=== PATIENT | female | born 1945 | race Caucasian/White ===

== ENCOUNTER 2018-08-19 12:27 | Emergency (ER) | payer MEDICARE ==
[~2018-08-19] VITALS: Ht 167.6 cm; Wt 86.6 kg
[~2018-08-19 12:27] MED LIST: ALPR1TAB6 PO; AMLO10TA6 PO; ASPI-482 PO; ATOR20TA58 PO; CARB200T4 PO; CITA20TA6 PO; DOXA8TAB59 PO; FLUT1DIS3 IH; HYDR-2762 PO; IBUP200T77 PO; ISOS30TA4 PO; LOSA100T7 PO; NAPR-514 PO; PHEN100C4 PO; TEMA30CA PO
[2018-08-19 13:05] VITALS: BP 183/88
[2018-08-19 13:07] LABS: CALCIUM 9.2 mg/dL (8.5-10.1); CREATININE 0.6 mg/dL (0.6-1.0); GFR 97.7; POTASSIUM 3.5 mmol/L (3.5-5.1)
[2018-08-19 13:13] LABS: ALBUMIN 3.2 g/dL (3.4-5.0); ALBUMIN/GLOBULIN RATIO 0.7 (1.0-1.7); BASO # 0.1 x10^3/uL (0.0-0.2); BASO % 1 % (0-3); EOS # 0.1 x10^3/uL (0.0-0.7); EOS % 2 % (0-3); HEMATOCRIT 38.1 % (36.0-47.0); HEMOGLOBIN 13.3 g/dL (12.0-15.5); LYMPH # 1.7 x10^3/uL (1.0-4.8); LYMPH % 25 % (24-48); MEAN CORPUSCULAR HEMOGLOBIN 34 pg (25-35); MEAN CORPUSCULAR HGB CONC 35 g/dL (31-37); MEAN CORPUSCULAR VOLUME 99 fL (79-100); MONO # 0.4 x10^3/uL (0.0-1.1); MONO % 7 % (0-9); NEUT # 4.5 x10^3uL (1.8-7.7); NEUT % 67 % (31-73); PLATELET COUNT 115 x10^3/uL (140-400); RED BLOOD COUNT 3.87 x10^6/uL (3.50-5.40); RED CELL DISTRIBUTION WIDTH 14.8 % (11.5-14.5); TOTAL BILIRUBIN 0.3 mg/dL (0.2-1.0); TOTAL PROTEIN 7.8 g/dL (6.4-8.2); WHITE BLOOD COUNT 6.8 x10^3/uL (4.0-11.0)
[2018-08-19] MEDS ORDERED: IV NORMAL SALINE 1000ML BAG 1,000 ML IV ONE (13:15)
[2018-08-19] MEDS ORDERED: FAMOTIDINE 20 MG/2 ML VIAL IVP ONE (13:15)
[2018-08-19] MEDS ORDERED: ONDANSETRON PF 4 MG/2 ML VIAL. IM ONE ×2 (13:15→15:30)
[2018-08-19] MEDS ORDERED: fentaNYL PF VIAL 100 MCG/2 ML VIAL IV ONE ×2 (13:15→14:30)
[2018-08-19] MEDS ORDERED: ONDANSETRON PF 4 MG/2 ML VIAL. IV ONE (13:30)
[2018-08-19] MEDS ORDERED: IOHEXOL 300 MG/ML 100ML VIAL. IV ONE (13:30)
--- NOTE | 2018-08-19 13:47 | EKG ---
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
--- NOTE | 2018-08-19 14:02 | RAD ---
CT scan of the abdomen with contrast 08/19/2018 CLINICAL HISTORY: Right upper quadrant abdominal pain with nausea and vomiting. TECHNIQUE: After the intravenous administration of 75 cc of Omnipaque 300, contiguous, 5 mm axial sections were obtained through the abdomen. One or more of the following individualized dose reduction techniques were utilized for this study: 1. Automated exposure control. 2. Adjustment of the mA and/or kV according to patient size. 3. Use of iterative reconstruction technique. FINDINGS: Images through the lung bases demonstrate mild cardiomegaly. Minimal dependent subsegmental atelectasis is seen bilaterally. The liver parenchyma has a decreased attenuation consistent with mild fatty infiltration. The spleen, pancreas, right adrenal gland and kidneys are within normal limits. A 2.5 cm rounded nodule is seen involving the left adrenal gland. This likely represents an adrenal adenoma. Atherosclerotic calcification of the abdominal aorta and its branches is seen. The abdominal aorta tapers normally. The gallbladder is well-distended. No free fluid or free air is seen within the abdomen. There is no evidence of bowel obstruction. Air and stool is seen throughout the colon. The appendix is not included on these images. Minimal S-shaped curvature of the thoracolumbar spine is seen. Degenerative changes are seen involving lower thoracic and throughout the lumbar spine. An old appearing compression fracture of the L1 vertebral body is seen. IMPRESSION: No acute abnormality is seen. Electronically signed by: Mark Neal MD (08/19/2018 1:58 PM) [facility]
[2018-08-19 14:21] LABS: BILIRUBIN,URINE NEGATIVE (NEG); CLARITY,URINE CLEAR; COLOR,URINE YELLOW; NITRITE,URINE NEGATIVE (NEG); PH,URINE 6.5; PROTEIN,URINE NEGATIVE (NEG-TRACE); UROBILINOGEN,URINE 0.2 mg/dL (0.2 mg/dL)
[2018-08-19 14:31] LABS: RBC,URINE 0 /HPF (0-2); SQUAMOUS EPITHELIAL CELL,UR OCC /LPF; WBC,URINE OCC /HPF (0-4)
[2018-08-19 14:32] LABS: BACTERIA,URINE MODERATE /HPF (0-FEW)
--- NOTE | 2018-08-19 14:51 | RAD ---
Right upper quadrant ultrasound 08/19/2018 INDICATION: Right upper quadrant pain. COMPARISON STUDY: CT of the abdomen and pelvis, earlier same day FINDINGS: The pancreas is poorly visualized. Aorta and IVC are poorly visualized. Liver is grossly normal in size measuring 14 cm longitudinally. Portal venous flow appears to be grossly normal direction. No focal hepatic lesions are identified by ultrasound. The common bile duct is nondilated measuring between 3 and 4 mm in diameter. The right kidney is normal in appearance measuring 13 cm in length. No evidence of acute obstructive uropathy is seen. Submitted images of the gallbladder demonstrate no definitive wall thickening. No sludge or stones are seen. Sonographic Pena sign is negative. IMPRESSION: No sonographic evidence of acute intra-abdominal abnormality Electronically signed by: Rosendo Hatfield MD (08/19/2018 2:47 PM) [facility]
[2018-08-19] MEDS ORDERED: RANI150T2 PO (15:19)
[2018-08-19] MEDS ORDERED: ONDA4TAB12 PO (15:20)
--- NOTE | 2018-08-19 15:21 | PHYS DOC ---
Past Medical History Past Medical History: Arthritis, Hypertension, Hypothyroid, Other Additional Past Medical Histor: polyps, epilepsy Past Surgical History: Hysterectomy, Other Additional Past Surgical Histo: bladder lift , colon resection Alcohol Use: None Drug Use: None Adult General Chief Complaint Chief Complaint: ABDOMINAL PAIN [facility] HPI Patient is a 73 year old female who presents with nausea, vomiting, right upper abdominal pain 2-3 weeks that is a constant sharp pain. Patient states she vomits after every time she eats something. Patient was at home with her . Patient rates her pain a 9 out of 10. Radiate. Patient states she has not taken anything for pain. Patient denies any current diarrhea. Patient states she had a bowel movement yesterday was normal for her. Patient states it doesn't matter what she eats she still vomits. Review of Systems Review of Systems Constitutional: Denies fever or chills [] Eyes: Denies change in visual acuity, redness, or eye pain [] HENT: Denies nasal congestion or sore throat [] Respiratory: Denies cough or shortness of breath [] Cardiovascular: No additional information not addressed in HPI [] GI: Right upper abdominal pain, nausea, vomiting. Denies bloody stools or diarrhea [] : Denies dysuria or hematuria [] Musculoskeletal: Denies back pain or joint pain [] Integument: Denies rash or skin lesions [] Neurologic: Denies headache, focal weakness or sensory changes [] Endocrine: Denies polyuria or polydipsia [] All other systems were reviewed and found to be within normal limits, except as documented in this note. Current Medications Current Medications Current Medications Medications (Trade) Dose Ordered Sig/[facility] Start Time Stop Time Status Last Admin Dose Admin Famotidine (Pepcid Vial) 20 mg 1X ONCE 08/19/18 13:15 08/19/18 13:18 DC 08/19/18 13:19 20 MG Fentanyl Citrate (Fentanyl 2ml Vial) 50 mcg 1X ONCE 08/19/18 14:30 08/19/18 14:31 DC 08/19/18 14:28 50 MCG Iohexol (Omnipaque 300 Mg/ml) 75 ml 1X ONCE 08/19/18 13:30 08/19/18 13:36 DC 08/19/18 13:39 75 ML Ondansetron HCl (Zofran) 4 mg 1X ONCE 08/19/18 15:30 10/8/18 15:31 DC 08/19/18 15:42 4 MG Sodium Chloride 1,000 ml @ 1,000 mls/hr 1X ONCE 08/19/18 13:15 08/19/18 14:14 DC 08/19/18 13:15 1,000 MLS/HR Allergies Allergies Allergies Coded Allergies Type Severity Reaction Last Updated Verified morphine Allergy Mild 06/06/15 No furosemide Adverse Reaction Intermediate "dizzy" 03/04/15 Yes Physical Exam Physical Exam Constitutional: Well developed, well nourished, no acute distress, non-toxic appearance. [] HENT: Normocephalic, atraumatic, bilateral external ears normal, oropharynx moist, no oral exudates, nose normal. [] Eyes: PERRLA, EOMI, conjunctiva normal, no discharge. [] Neck: Normal range of motion, no tenderness, supple, no stridor. [] Cardiovascular:Heart rate regular rhythm, no murmur [] Lungs & Thorax: Bilateral breath sounds clear to auscultation [] Abdomen: Bowel sounds normal, soft, RUQ tenderness, no masses, no pulsatile masses. [] Skin: Warm, dry, no erythema, no rash. [] Back: No tenderness, no CVA tenderness. [] Extremities: No tenderness, no cyanosis, no clubbing, ROM intact, no edema. [] Neurologic: Alert and oriented X 3, normal motor function, normal sensory function, no focal deficits noted. [] Psychologic: Affect normal, judgement normal, mood normal. [] Current Patient Data Vital Signs Vital Signs Date Time Temp Pulse Resp B/P (MAP) Pulse Ox O2 Delivery O2 Flow Rate FiO2 08/19/18 14:28 96 Room Air 08/19/18 13:05 60 183/88 (119) 08/19/18 12:29 98.0 18 98.0 Lab Values Laboratory Tests Test 08/19/18 12:44 08/19/18 14:10 White Blood Count 6.8 x10^3/uL (4.0-11.0) Red Blood Count 3.87 x10^6/uL (3.50-5.40) Hemoglobin 13.3 g/dL (12.0-15.5) Hematocrit 38.1 % (36.0-47.0) Mean Corpuscular Volume 99 fL (79-100) Mean Corpuscular Hemoglobin 34 pg (25-35) Mean Corpuscular Hemoglobin Concent 35 g/dL (31-37) Red Cell Distribution Width 14.8 % (11.5-14.5) H Platelet Count 115 x10^3/uL (140-400) L Neutrophils (%) (Auto) 67 % (31-73) Lymphocytes (%) (Auto) 25 % (24-48) Monocytes (%) (Auto) 7 % (0-9) Eosinophils (%) (Auto) 2 % (0-3) Basophils (%) (Auto) 1 % (0-3) Neutrophils # (Auto) 4.5 x10^3uL (1.8-7.7) Lymphocytes # (Auto) 1.7 x10^3/uL (1.0-4.8) Monocytes # (Auto) 0.4 x10^3/uL (0.0-1.1) Eosinophils # (Auto) 0.1 x10^3/uL (0.0-0.7) Basophils # (Auto) 0.1 x10^3/uL (0.0-0.2) Sodium Level 136 mmol/L (136-145) Potassium Level 3.5 mmol/L (3.5-5.1) Chloride Level 100 mmol/L (98-107) Carbon Dioxide Level 26 mmol/L (21-32) Anion Gap 10 (6-14) Blood Urea Nitrogen 11 mg/dL (7-20) Creatinine 0.6 mg/dL (0.6-1.0) Estimated GFR (Cockcroft-Gault) 97.7 BUN/Creatinine Ratio 18 (6-20) Glucose Level 105 mg/dL (70-99) H Calcium Level 9.2 mg/dL (8.5-10.1) Total Bilirubin 0.3 mg/dL (0.2-1.0) Aspartate Amino Transferase (AST) 22 U/L (15-37) Alanine Aminotransferase (ALT) 27 U/L (14-59) Alkaline Phosphatase 69 U/L (46-116) Troponin I Quantitative < 0.017 ng/mL (0.000-0.055) Total Protein 7.8 g/dL (6.4-8.2) Albumin 3.2 g/dL (3.4-5.0) L Albumin/Globulin Ratio 0.7 (1.0-1.7) L Lipase 194 U/L (73-393) Urine Collection Type Unknown Urine Color Yellow Urine Clarity Clear Urine pH 6.5 Urine Specific [place] 1.025 Urine Protein Negative mg/dL (NEG-TRACE) Urine Glucose (UA) Negative mg/dL (NEG) Urine Ketones (Stick) Negative mg/dL (NEG) Urine Blood Negative (NEG) Urine Nitrite Negative (NEG) Urine Bilirubin Negative (NEG) Urine Urobilinogen Dipstick 0.2 mg/dL (0.2 mg/dL) Urine Leukocyte Esterase Negative (NEG) Urine RBC 0 /HPF (0-2) Urine WBC Occ /HPF (0-4) Urine Squamous Epithelial Cells Occ /LPF Urine Bacteria Moderate /HPF (0-FEW) Laboratory Tests 08/19/18 12:44 Laboratory Tests 08/19/18 12:44 EKG EKG [] Radiology/Procedures Radiology/Procedures CT ABD, ABD US Impressions: [facility] [address] [place] [address] IMAGING REPORT Signed PATIENT: MAURISIO MENSAH ACCOUNT: [id number] : 1945 LOCATION: ER AGE: 73 SEX: F EXAM STATUS: REG ER ORD. PHYSICIAN: BRITNI ONEILL APRN REASON: RIGHT UPPER ABDOMINAL PAIN PROCEDURE: CT ABDOMEN W/CONTRAST CT scan of the abdomen with contrast 08/19/2018 CLINICAL HISTORY: Right upper quadrant abdominal pain with nausea and vomiting. TECHNIQUE: After the intravenous administration of 75 cc of Omnipaque 300, contiguous, 5 mm axial sections were obtained through the abdomen. One or more of the following individualized dose reduction techniques were utilized for this study: 1. Automated exposure control. 2. Adjustment of the mA and/or kV according to patient size. 3. Use of iterative reconstruction technique. FINDINGS: Images through the lung bases demonstrate mild cardiomegaly. Minimal dependent subsegmental atelectasis is seen bilaterally. The liver parenchyma has a decreased attenuation consistent with mild fatty infiltration. The spleen, pancreas, right adrenal gland and kidneys are within normal limits. A 2.5 cm rounded nodule is seen involving the left adrenal gland. This likely represents an adrenal adenoma. Atherosclerotic calcification of the abdominal aorta and its branches is seen. The abdominal aorta tapers normally. The gallbladder is well-distended. No free fluid or free air is seen within the abdomen. There is no evidence of bowel obstruction. Air and stool is seen throughout the colon. The appendix is not included on these images. Minimal S-shaped curvature of the thoracolumbar spine is seen. Degenerative changes are seen involving lower thoracic and throughout the lumbar spine. An old appearing compression fracture of the L1 vertebral body is seen. IMPRESSION: No acute abnormality is seen. Electronically signed by: Mark Neal MD (08/19/2018 1:58 PM) [id number] DICTATED and SIGNED BY: MARK NEAL MD DATE: 08/19/18 1352 [facility] [address] [place] [address] IMAGING REPORT Signed PATIENT: MAURISIO MENSAH ACCOUNT: [id number] : 1945 LOCATION: ER AGE: 73 SEX: F EXAM STATUS: REG ER ORD. PHYSICIAN: BRITNI ONEILL APRN REASON: right upper quad pain, rule out gallstones PROCEDURE: ABDOMEN LTD Right upper quadrant ultrasound 08/19/2018 INDICATION: Right upper quadrant pain. COMPARISON STUDY: CT of the abdomen and pelvis, earlier same day FINDINGS: The pancreas is poorly visualized. Aorta and IVC are poorly visualized. Liver is grossly normal in size measuring 14 cm longitudinally. Portal venous flow appears to be grossly normal direction. No focal hepatic lesions are identified by ultrasound. The common bile duct is nondilated measuring between 3 and 4 mm in diameter. The right kidney is normal in appearance measuring 13 cm in length. No evidence of acute obstructive uropathy is seen. Submitted images of the gallbladder demonstrate no definitive wall thickening. No sludge or stones are seen. Sonographic Pena sign is negative. IMPRESSION: No sonographic evidence of acute intra-abdominal abnormality Electronically signed by: Rosendo Hatfield MD (08/19/2018 2:47 PM) [id number] DICTATED and SIGNED BY: ROSENDO HATFIELD MD DATE: 08/19/18 1442 Course & Med Decision Making Course & Med Decision Making Patient is a 73 year old female who presents with nausea, vomiting, right upper abdominal pain 2-3 weeks that is a constant sharp pain. Patient states she vomits after every time she eats something. Patient was at home with her . Patient rates her pain a 9 out of 10. Radiate. Patient states she has not taken anything for pain. Patient denies any current diarrhea. Patient states she had a bowel movement yesterday was normal for her. Patient states it doesn't matter what she eats she still vomits. Patient's abdomen is soft and without masses but has right upper quadrant abdominal tenderness. Patient vomiting stomach bile in the ER. He is skin is pink warm and dry. Patient is alert and oriented. Patient's heart rate is regular without murmur. Patient EKG is a sinus rhythm and no STEMI was read by Dr. Jones. Patient has no extremity edema. Patient's abdominal CT is normal and her ultrasound the upper abdominal area is also normal. Patient has received a total of 100mcg of fentanyl and 8 mg of Zofran in the ED. Patient is told that she needs to follow- up with GI and is given prescription for ranitidine and Zofran ODT. Patient agrees with this discharge plan. Staff Physician Addendum: I was working in the ER during the course of this patient's visit. I was available for consultation as needed, but I was not directly involved in the care of this patient. [] Dragon Disclaimer Dragon Disclaimer This electronic medical record was generated, in whole or in part, using a voice recognition dictation system. Departure Departure Impression: Primary Impression: Abdominal pain Disposition: 01 HOME, SELF-CARE Condition: STABLE Referrals: Isa MARTÍNEZ MD (PCP) LORIE ZIMMER MD Patient Instructions: Abdominal Pain Additional Instructions: Follow up with your primary care and GI as soon as possible. Eat only light bland foods and take Zantac twice a day. Scripts Ondansetron (ONDANSETRON ODT) 4 Mg Tab.rapdis 4 MG PO BID PRN for NAUSEA/VOMITING, #12 TAB Prov: BRITNI ONEILL APRN 08/19/18 Ranitidine Hcl (RANITIDINE HCL) 150 Mg Tablet 150 MG PO BID for 10 Days, #20 TAB Prov: BRITNI ONEILL APRN 08/19/18 Problem Qualifiers Primary Impression: Abdominal pain Abdominal location: right upper quadrant Qualified Codes: R10.11 - Right upper quadrant pain BRITNI ONEILL APRN Aug 19, 2018 15:21 PARAM JONES MD Aug 19, 2018 16:42
== END 2018-08-19 15:45 | disposition home or self-care (01) ==
LOC: ER 12:27
DX: R10.11 Right upper quadrant pain (principal); R11.2 Nausea with vomiting, unspecified; I10 Essential (primary) hypertension; E03.9 Hypothyroidism, unspecified; G40.909 Epilepsy, unspecified, not intractable, without status epilepticus; Z90.710 Acquired absence of both cervix and uterus; Z88.5 Allergy status to narcotic agent; Z88.8 Allergy status to other drugs, medicaments and biological substances
CPT/HCPCS: 36415; 74160; 76705; 80053; 81001; 83690; 84484; 85025; 93005; 96361; 96372; 96374; 96375; 96376; 99285; J2405; J3010; J7030; Q9967; S0028

== ENCOUNTER 2021-12-06 13:04 | Inpatient (IN) | payer MEDICARE ==
[~2021-12-06] VITALS: Ht 170.2 cm; Wt 102.0 kg
[~2021-12-06 13:04] MED LIST changes: +AMLO-187 PO; -AMLO10TA6 PO; -HYDR-2762 PO; +HYDR-2765 PO; -ISOS30TA4 PO; +ISOS30TA68 PO; +LOSA100T14 PO; -LOSA100T7 PO; +ONDA4TAB12 PO; +RANI150T2 PO; +TRAM50TA PO
--- NOTE | 2021-12-06 13:16 | PHYS DOC ---
Past Medical History Past Medical History: Arthritis, Hypertension, Hypothyroid, Other Additional Past Medical Histor: polyps, epilepsy Past Surgical History: Hysterectomy, Other Additional Past Surgical Histo: bladder lift , colon resection Smoking Status: Former Smoker Alcohol Use: None Drug Use: None General Adult EDM: Chief Complaint: MECHANICAL FALL HPI: HPI: Patient is a 76-year-old female who presents to the emergency department for a fall that occurred today. Patient reports that she was walking and her legs gave out. She is reporting right-sided rib pain that she rates 5 out of 10. Worse with movement. No treatment prior to arrival. Patient reports mild dizziness before fall. She denies any current dizziness, nausea, vomiting, blood thinner use, head injury, loss of consciousness. Patient reports she is supposed to be walking with a walker but did not use today Review of Systems: Review of Systems: Constitutional: negative unless reported in HPI Eyes: negative unless reported in HPI HENT: negative unless reported in HPI Respiratory: negative unless reported in HPI Cardiovascular: negative unless reported in HPI GI: negative unless reported in HPI : negative unless reported in HPI Musculoskeletal: negative unless reported in HPI Integument: negative unless reported in HPI Neurologic: negative unless reported in HPI Endocrine: negative unless reported in HPI Lymphatic: negative unless reported in HPI Psychiatric: negative unless reported in HPI Heart Score: C/O Chest Pain: N/A Risk Factors: Risk Factors: DM, Current or recent (<one month) smoker, HTN, HLP, family history of CAD, obesity. Risk Scores: Score 0 - 3: 2.5% MACE over next 6 weeks - Discharge Home Score 4 - 6: 20.3% MACE over next 6 weeks - Admit for Clinical Observation Score 7 - 10: 72.7% MACE over next 6 weeks - Early Invasive Strategies Allergies: Allergies: Allergies Coded Allergies Type Severity Reaction Last Updated Verified morphine Allergy Mild 06/06/15 No furosemide Adverse Reaction Intermediate "dizzy" 03/04/15 Yes Physical Exam: PE: Constitutional: Well developed, well nourished, no acute distress, non-toxic appearance. [] HENT: Normocephalic, atraumatic, bilateral external ears normal, oropharynx moist, no oral exudates, nose normal. [] Eyes: PERRL, EOMI, conjunctiva normal, no discharge. [] Neck: Normal range of motion, no bony spinal tenderness, supple, no stridor. [] Cardiovascular:Heart rate regular rhythm, no murmur [] Lungs & Thorax: Bilateral breath sounds clear to auscultation, ecchymosis noted to right anterior ribs, no flail segments, no obvious deformity [] Abdomen: Bowel sounds normal, soft, no tenderness, no masses, no pulsatile masses. [] Skin: Warm, dry, no erythema, no rash. [] Back: No bony spinal tenderness, normal range of motion Extremities: No tenderness, no cyanosis, no clubbing, ROM intact, no edema. [] No pain with palpation to hips/pelvis, no shortening or rotation Neurologic: Alert and oriented X 3, normal motor function, normal sensory function, no focal deficits noted. [] Psychologic: Affect normal, judgement normal, mood normal. [] Current Patient Data: Labs: Laboratory Tests Test 12/06/21 14:20 White Blood Count 10.0 x10^3/uL Red Blood Count 4.30 x10^6/uL Hemoglobin 13.7 g/dL Hematocrit 39.9 % Mean Corpuscular Volume 93 fL Mean Corpuscular Hemoglobin 32 pg Mean Corpuscular Hemoglobin Concent 34 g/dL Red Cell Distribution Width 12.5 % Platelet Count 139 x10^3/uL Neutrophils (%) (Auto) 73 % Lymphocytes (%) (Auto) 17 % Monocytes (%) (Auto) 8 % Eosinophils (%) (Auto) 1 % Basophils (%) (Auto) 0 % Neutrophils # (Auto) 7.3 x10^3/uL Lymphocytes # (Auto) 1.7 x10^3/uL Monocytes # (Auto) 0.8 x10^3/uL Eosinophils # (Auto) 0.1 x10^3/uL Basophils # (Auto) 0.0 x10^3/uL Sodium Level 137 mmol/L Potassium Level 3.9 mmol/L Chloride Level 102 mmol/L Carbon Dioxide Level 25 mmol/L Anion Gap 10 Blood Urea Nitrogen 19 mg/dL Creatinine 0.6 mg/dL Estimated GFR (Cockcroft-Gault) 96.9 BUN/Creatinine Ratio 32 Glucose Level 117 mg/dL Calcium Level 8.4 mg/dL Total Bilirubin 0.4 mg/dL Aspartate Amino Transf (AST/SGOT) 19 U/L Alanine Aminotransferase (ALT/SGPT) 29 U/L Alkaline Phosphatase 106 U/L Troponin I High Sensitivity 15 ng/L Total Protein 7.9 g/dL Albumin 3.0 g/dL Albumin/Globulin Ratio 0.6 Current Medications Medications (Trade) Dose Ordered Sig/Caro Route PRN Reason Start Time Stop Time Status Last Admin Dose Admin Sodium Chloride 1,000 ml @ 1,000 mls/hr 1X ONCE IV 12/06/21 13:30 12/06/21 14:29 DC 12/06/21 14:25 EKG: EKG: EKG performed by ER staff it 1316 shows sinus rhythm with a rate of 64, no STEMI read by Dr. Davies [] Radiology/Procedures: Radiology/Procedures: []PROCEDURE: RIBS RIGHT AND PA CHEST EXAM: Chest and right ribs, 6 views. HISTORY: Pain. Fall. COMPARISON: 07/03/2021 FINDINGS: A frontal view of the chest and 5 views of the right ribs are obtained . There is stable elevation or eventration of the right hemidiaphragm. The heart is normal in size. There is stable chronic appearing suprahilar interstitial prominence. No acute rib fracture is seen. IMPRESSION: No acute pulmonary or osseous finding. Electronically signed by: Azalea Mclean MD (12/06/2021 2:52 PM) [id number] DICTATED and SIGNED BY: AZALEA MCLEAN MD DATE: 12/06/21 [id number] PROCEDURE: CT HEAD AND CERVICAL SPINE WO STUDY: CT head and cervical spine without contrast INDICATION: Frequent falls. COMPARISON: 07/03/2021 TECHNIQUE: Axial CT imaging through the head and cervical spine without the use of intravenous contrast. Sagittal and coronal reformats were obtained. One or more of the following individualized dose reduction techniques were utilized for this examination: 1. Automated exposure control 2. Adjustment of the mA and/or kV according to patient size 3. Use of iterative reconstruction technique. FINDINGS: CT head: No acute intracranial hemorrhage. Green-white matter differentiation is maintained. No mass effect, midline shift or hydrocephalus. Unchanged asymmetry of the lateral ventricles. Parenchymal volume loss. Carotid siphon calcific atherosclerosis. No depressed calvarial fracture. Unchanged paranasal sinuses/mastoid air cells. CT cervical spine: No acute fracture or traumatic malalignment. Unchanged degree of multifactorial cervical spondylosis again with discogenic arthrosis greatest at C5-C6. There is marked uncovertebral joint hypertrophy on the right at C5-C6 resulting in severe osseous neural foraminal stenosis as well as stenosis of the right lateral recess. Disc osteophyte protrusion eccentric to the right at C2-C3. Facet arthrosis is mostly mild and moderate in severity. Degenerative grade 1 anterolisthesis of C3 on C4 and C4 on C5. Broad cervical levocurvature. No paraspinous hematoma. Carotid calcific atherosclerosis on the right more so than left. IMPRESSION: CT head: 1. No acute intracranial abnormality by CT. CT cervical spine: 1. No acute fracture or traumatic malalignment. 2. Multifactorial degenerative changes without significant progression in the interim. There is again severe osseous neural foraminal stenosis on the right at C5-C6. Electronically signed by: LAM DOZIER MD (12/06/2021 3:04 PM) [facility]: [facility] RIGHT 3V EXAM: Right knee, 3 views. HISTORY: Pain. COMPARISON: None. FINDINGS: 3 views of the right knee are obtained. There is moderate to severe tricompartmental joint space narrowing with subchondral sclerosis and spurring. There is chronic lateral subluxation of the tibial plateau relative the femoral condyles. No joint effusion is seen. There is suspected bone demineralization. IMPRESSION: Moderate to severe tricompartmental osteoarthritis of the right knee. Electronically signed by: Azalea Mclean MD (12/06/2021 4:08 PM) [id number] DICTATED and SIGNED BY: AZALEA MCLEAN MD DATE: 12/06/21 [id number] 0 Course & Med Decision Making: Course & Med Decision Making Pertinent Labs and Imaging studies reviewed. (See chart for details) [] Patient resents emergency department for a fall and right rib pain. Patient reports that she got dizzy and her legs gave out and she fell. She reports that she has falled 3 times this week. Imaging was performed of patient's head/neck and chest. Work-up also included blood work and an EKG. Patient's blood work was unremarkable. Imaging did not show any acute findings. Patient treated with IV fluids. Patient was unable to ambulate in the ER. Family is concerned because she lives with her 80 year old and he is unable to care for her and she falls frequently. They report that when patient fell previously, they discussed admission for a rehab facility and patient is agreeable at this time. Discussed these findings with Dr. Flores and he agreed to the patient under his services for frequent falls and rehab transfer. Dragon Disclaimer: Jose Disclaimer: This electronic medical record was generated, in whole or in part, using a voice recognition dictation system. Departure Departure Impression: Primary Impression: Fall Qualified Codes: W19.XXXA - Unspecified fall, initial encounter Disposition: ADMITTED INPATIENT Admitting Physician: ADELINA (Dr. Flores) Condition: GOOD Referrals: Isa MARTÍNEZ MD (PCP) AMINATA LIPSCOMB APRN Dec 06, 2021 13:16
--- NOTE | 2021-12-06 13:26 | EKG ---
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
[2021-12-06] MEDS ORDERED: IV NORMAL SALINE 1000ML BAG 1,000 ML IV ONE (13:30)
[2021-12-06 14:36] LABS: BASO % 0 % (0-3); EOS # 0.1 x10^3/uL (0.0-0.7); EOS % 1 % (0-3); HEMATOCRIT 39.9 % (36.0-47.0); HEMOGLOBIN 13.7 g/dL (12.0-15.5); LYMPH # 1.7 x10^3/uL (1.0-4.8); LYMPH % 17 % (24-48); MEAN CORPUSCULAR HEMOGLOBIN 32 pg (25-35); MEAN CORPUSCULAR HGB CONC 34 g/dL (31-37); MEAN CORPUSCULAR VOLUME 93 fL (79-100); MONO # 0.8 x10^3/uL (0.0-1.1); MONO % 8 % (0-9); NEUT # 7.3 x10^3/uL (1.8-7.7); NEUT % 73 % (31-73); PLATELET COUNT 139 x10^3/uL (140-400); RED CELL DISTRIBUTION WIDTH 12.5 % (11.5-14.5)
--- NOTE | 2021-12-06 14:54 | RAD ---
EXAM: Chest and right ribs, 6 views. HISTORY: Pain. Fall. COMPARISON: 07/03/2021 FINDINGS: A frontal view of the chest and 5 views of the right ribs are obtained. There is stable domingo vation or eventration of the right hemidiaphragm. The heart is normal in size. There is stable chroni c appearing suprahilar interstitial prominence. No acute rib fracture is seen. IMPRESSION: No acute pulmonary or osseous finding. Electronically signed by: Azalea Jolly MD (12/06/2021 2:52 PM) [id number]
[2021-12-06 15:04] LABS: CALCIUM 8.4 mg/dL (8.5-10.1); CREATININE 0.6 mg/dL (0.6-1.0); GFR 96.9; POTASSIUM 3.9 mmol/L (3.5-5.1)
--- NOTE | 2021-12-06 15:07 | RAD ---
STUDY: CT head and cervical spine without contrast INDICATION: Frequent falls. COMPARISON: 07/03/2021 TECHNIQUE: Axial CT imaging through the head and cervical spine without the use of intravenous contra st. Sagittal and coronal reformats were obtained. One or more of the following individualized dose reduction techniques were utilized for this examinat ion: 1. Automated exposure control 2. Adjustment of the mA and/or kV according to patient size 3. Use of iterative reconstruction technique. FINDINGS: CT head: No acute intracranial hemorrhage. Green-white matter differentiation is maintained. No mass effect, mi dline shift or hydrocephalus. Unchanged asymmetry of the lateral ventricles. Parenchymal volume loss. Carotid siphon calcific atherosclerosis. No depressed calvarial fracture. Unchanged paranasal sinuses/mastoid air cells. CT cervical spine: No acute fracture or traumatic malalignment. Unchanged degree of multifactorial cervical spondylosis again with discogenic arthrosis greatest at C 5-C6. There is marked uncovertebral joint hypertrophy on the right at C5-C6 resulting in severe osseo us neural foraminal stenosis as well as stenosis of the right lateral recess. Disc osteophyte protrus ion eccentric to the right at C2-C3. Facet arthrosis is mostly mild and moderate in severity. Degener ative grade 1 anterolisthesis of C3 on C4 and C4 on C5. Broad cervical levocurvature. No paraspinous hematoma. Carotid calcific atherosclerosis on the right more so than left. IMPRESSION: CT head: 1. No acute intracranial abnormality by CT. CT cervical spine: 1. No acute fracture or traumatic malalignment. 2. Multifactorial degenerative changes without significant progression in the interim. There is agai n severe osseous neural foraminal stenosis on the right at C5-C6. Electronically signed by: LAM DOZIER MD (12/06/2021 3:04 PM) [facility]
[2021-12-06 15:17] LABS: ALBUMIN/GLOBULIN RATIO 0.6 (1.0-1.7); TOTAL BILIRUBIN 0.4 mg/dL (0.2-1.0); TOTAL PROTEIN 7.9 g/dL (6.4-8.2)
--- NOTE | 2021-12-06 16:10 | RAD ---
EXAM: Right knee, 3 views. HISTORY: Pain. COMPARISON: None. FINDINGS: 3 views of the right knee are obtained. There is moderate to severe tricompartmental joint space narrowing with subchondral sclerosis and spurring. There is chronic lateral subluxation of the tibial plateau relative the femoral condyles. No joint effusion is seen. There is suspected bone barbara neralization. IMPRESSION: Moderate to severe tricompartmental osteoarthritis of the right knee. Electronically signed by: Azalea Jolly MD (12/06/2021 4:08 PM) [id number]
[2021-12-06 18:15] VITALS: BP 215/70
[2021-12-06] MEDS ORDERED: hydrALAZINE 20 MG/ML VIAL. IVP PRN ×2 (18:30)
[2021-12-06] MEDS: fentaNYL PF VIAL 100 MCG/2 ML VIAL IVP PRN (18:43)
[2021-12-06 19:00] VITALS: BP 140/55
--- NOTE | 2021-12-06 19:02 | HP ---
DATE OF SERVICE: 12/06/2021 ADMIT DATE: 12/06/2021 CHIEF COMPLAINT: Weakness, falls. HISTORY OF PRESENT ILLNESS: The patient is a pleasant 76-year-old female who lives at home with her . She has been falling. She is weak. She is not eating. She states her knees are giving out. She has some rib pain, 5/10, worse with moving, better with sitting still. I discussed the case with ER physician. We are going to admit the patient. PAST MEDICAL HISTORY: Arthritis, hypertension, hypothyroidism, colon polyps, epilepsy, hysterectomy, bladder lift, colon resection, previous tobacco abuse. ALLERGIES: LASIX AND MORPHINE. FAMILY HISTORY: Hypertension. SOCIAL HISTORY: She quit smoking. No drink or drugs. 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 MEDICATIONS: Reviewed, please refer to the MRAD. REVIEW OF SYSTEMS: GENERAL: She complains of weakness and falls. SKIN: No bruising, hair changes or rashes. EYES: No blurred, double or loss of vision. NOSE AND THROAT: No history of nosebleeds, hoarseness or sore throat. HEART: No history of palpitations, chest pain or shortness of breath on exertion. LUNGS: Denies cough, hemoptysis, wheezing or shortness of breath. GASTROINTESTINAL: Denies changes in appetite, nausea, vomiting, diarrhea or constipation. GENITOURINARY: No history of frequency, urgency, hesitancy or nocturia. NEUROLOGIC: She complains of weakness and falls. PSYCHIATRIC: No history of panic, anxiety or depression. ENDOCRINE: No history of heat or cold intolerance, polyuria or polydipsia. EXTREMITIES: Denies muscle weakness, joint pain, pain on walking or stiffness. PHYSICAL EXAMINATION: VITALS: Within normal limits and are stable. GENERAL: She is weak. HEENT: Normal cephalic atraumatic, external auditory canals are patent EYES: Extraocular muscles are intact, pupils are equally round and reactive to light and accommodation MUSCULOSKELETAL: Well developed, well nourished, good range of motion ENDOCRINE: No thyromegaly was palpated LYMPHATICS: No cervical chain or axillary nodes were noted HEMATOPOIETIC: No bruising NECK: Supple, no JVD, no thyromegaly was noted. LUNGS: Clear to auscultation in all lung lopez without rhonchi or wheezing. HEART: RRR, S1, S2 present. Peripheral pulses intact, no obvious murmurs were noted. ABDOMEN: Soft, nontender. Positive bowel sounds no organomegaly, normal bowel sounds. EXTREMITIES: Without any cyanosis, clubbing, or edema. Pedal pulses intact, Homans sign is negative. NEUROLOGIC: She is weak. PSYCHIATRIC: Normal affect, normal mood. Stable. SKIN: No ulcerations or rashes, good skin turgor, no jaundice. VASCULAR: Good capillary refill, neurovascular bundle appears to be intact. LABORATORY DATA: Hematology normal. Electrolytes are normal. CT of the head showed no acute disease. Rib x-rays showed no acute osseous findings. Knee x-ray showed tricompartmental osteoarthritis. ASSESSMENT AND PLAN: Weakness, falls, debility. Hypertensive urgency with blood pressures running 215/70. The patient has been admitted. We will consult director of social services for group home and/or long-term care placement. P.r.n, hydralazine for her hypertensive urgency. PT, OT. DVT prophylaxis. P.r.n. fentanyl. Full code. VICENTE DR: Octavio TID: [id number]
[2021-12-06] MEDS: carBAMazepine 200 MG TABLET PO SCH (20:33)
[2021-12-06] MEDS: ALPRAZolam 1 MG TABLET PO SCH (20:33)
[2021-12-06] MEDS: ATORVASTATIN CALCIUM 20 MG TABLET PO SCH (20:33)
[2021-12-06] MEDS: TEMAZEPAM 15 MG CAPSULE PO SCH (20:33)
[2021-12-06] MEDS: PHENYTOIN SODIUM EXTENDED 100 MG CAPSULE PO SCH (20:34)
[2021-12-06 23:00] VITALS: BP 133/58
[2021-12-07] MEDS ORDERED: ALPRAZolam 1 MG TABLET PO ONE (03:00)
[2021-12-07] MEDS ORDERED: traMADol 50 MG TABLET PO PRN (03:00)
[2021-12-07] MEDS: fentaNYL PF VIAL 100 MCG/2 ML VIAL IVP PRN (03:02)
[2021-12-07 07:00] VITALS: BP 185/68
[2021-12-07] MEDS: ALPRAZolam 1 MG TABLET PO SCH ×3 (09:45→21:25)
[2021-12-07] MEDS: LOSARTAN POTASSIUM 50 MG TABLET. PO SCH (09:45)
[2021-12-07] MEDS: carBAMazepine 200 MG TABLET PO SCH ×2 (09:46→21:26)
[2021-12-07] MEDS ORDERED: BUPIVACAINE MPF 0.25% 10 ML VIAL. IJ ONE (13:00)
[2021-12-07] MEDS ORDERED: methylPREDNISolone ACETATE 80 MG/ML VIAL. IM ONE (13:00)
--- NOTE | 2021-12-07 13:30 | CONS ---
DATE OF CONSULTATION: 12/07/2021 ATTENDING PHYSICIAN: Matteo Flores DO REASON FOR CONSULTATION: The patient was seen at the request of Dr. Flores for rehab evaluation. HISTORY OF PRESENT ILLNESS: This is a 76-year-old right-handed female patient with painful degenerative joint disease of her right knee joint. The patient had left forearm surgery done in 06/2021. Since then, she is somewhat afraid of falling. She had several falls. The patient was admitted on 12/06/2021 after a fall and complained of left rib cage pain. X-rays failed to reveal any acute abnormalities. She had CT scan of cervical vertebrae, which revealed multilevel degenerative disk disease and degenerative joint disease. She denies any neck pain. She denies any numbness, tingling sensation in the extremities. The patient is status post left total knee arthroplasty, also with known osteoarthritis, hypertension, hypothyroidism, colonic polyps, epilepsy, hysterectomy, bladder lift, colon resection, previous tobacco abuse. ALLERGIES: KNOWN ALLERGIC TO LASIX AND MORPHINE. FAMILY HISTORY: Hypertension. SOCIAL HISTORY: The patient lives with her . No stairs for her to manage. PHYSICAL EXAMINATION: GENERAL: Today revealed a middle-aged female. She is alert, oriented to time, place, person and circumstance, follows commands appropriately. NEUROLOGIC: Moves all 4 extremities voluntarily where she had 4+/5 grade muscle strength. She is protecting her right knee to some extent. She had crepitus on range of motion of her right knee joint with knee joint effusion, diffuse tenderness to palpation over medial and lateral knee joint line. The patient had decreased absent knee and ankle jerks. She had equal perception of touch and pinprick sensation bilaterally. She is obese. She got bruises skin over medial aspect of her left knee. I have not tested her transfers skills as she is somewhat afraid of falling down. ASSESSMENT: A middle-aged female with painful degenerative joint disease of right knee. Clinical evidence of peripheral neuropathy, also degenerative joint disease and degenerative disk disease of cervical vertebrae, but no clinical evidence of cervical radiculopathy or cervical spinal stenosis. The patient is status post left total knee arthroplasty, also with known hypertension, hypothyroidism, colonic polyps, epilepsy, colon resection. RECOMMENDATIONS: At her request, I have injected painful right knee joint under aseptic skin technique after skin preparation using alcohol swab with Depo-Medrol 80 mg per 1 mL solution mixed with 2 mL of Marcaine 0.25% solution and she tolerated the procedure satisfactorily. To see how she does with physical therapy and occupational therapy, to ask for a screen for transfer to correction or rehabilitation unit for continued care. Dr. Flores appreciate asking me to participate in the care of this interesting patient. I will be glad to see her for followup with you on as needed basis. VANI/EMERSON DR: [place] TID: [id number] CC: BULL MANE MD
--- NOTE | 2021-12-07 13:46 | NUR ---
SW following. Discussed with RN, pt from home with (daughter helps), room air, regular diet. Therapy recommending SNF, however per RN pt does not want to go to SNF. Pt had knee injection from Dr. Jin this afternoon - see how pt does with therapy after knee injection. SW will continue to follow.
--- NOTE | 2021-12-07 14:36 | PDOC ---
[facility] PROGRESS NOTE Date of Service DOS: DATE: 12/07/21 TIME: 14:31 Chief Complaint Chief Complaint Weakness and debility Multiple falls Hypertensive urgency Severe right knee osteoarthritis Pending pain and rehab consult evaluation IV antihypertensive regimens to maintain systolic blood pressure goals between [id number] IV n.p.o. pain control PT OT modalities Fall precautions Lovenox for DVT prophylaxis History of Present Illness History of Present Illness 76-year-old female who lives at home with her . She has been falling. She is weak. She is not eating. She states her knees are giving out. She has some rib pain, 5/10, worse with moving, better with sitting still. 12/07/2021 No acute events overnight. Patient seen examined bedside. Patient complaining of right knee pain that severe and severe tenderness upon palpation. No erythema or warmth upon palpation. Unable to elevate her lower extremity. Patient will need extensive rehab and pain management. Vitals/I&O Vitals/I&O: Vital Signs Date Time Temp Pulse Resp B/P (MAP) Pulse Ox O2 Delivery O2 Flow Rate FiO2 12/07/21 09:46 95 Room Air 12/07/21 09:46 73 185/68 12/07/21 07:00 98.1 20 98.1 Physical Exam General: Alert, Oriented X3, Cooperative Lungs: Clear Extremities: Other (Severe tenderness to palpation on the right knee) Assessment and Plan Assessmemt and Plan Problems Medical Problems: (1) Fall Status: Acute Comment Review of Relevant I have reviewed the following items raffaele (where applicable) has been applied. Medications: Current Medications Medications (Trade) Dose Ordered Sig/Caro Route PRN Reason Start Time Stop Time Status Last Admin Dose Admin Fentanyl Citrate (Fentanyl 2ml Vial) 50 mcg PRN Q2HR PRN IVP PAIN 12/06/21 16:30 12/07/21 16:29 12/07/21 03:02 Hydralazine HCl (Apresoline Inj) 20 mg PRN Q6HRS PRN IVP ELEVATED BP, SEE COMMENTS 12/06/21 18:30 12/06/21 18:41 Alprazolam (Xanax) 1 mg TID PO 12/06/21 21:00 12/07/21 09:45 Amlodipine Besylate (Norvasc) 10 mg DAILY PO 12/07/21 09:00 12/07/21 09:46 Atorvastatin Calcium (Lipitor) 20 mg QHS PO 12/06/21 21:00 12/06/21 20:33 Carbamazepine (TEGretol) 400 mg HS PO 12/06/21 21:00 12/06/21 20:33 Carbamazepine (TEGretol) 600 mg DAILY08 PO 12/07/21 08:00 12/07/21 09:46 Phenytoin Sodium (Dilantin) 400 mg HS PO 12/06/21 21:00 12/06/21 20:34 Temazepam (Restoril) 30 mg HS PO 12/06/21 21:00 12/06/21 20:33 Losartan Potassium (Cozaar) 100 mg DAILY PO 12/07/21 09:00 12/07/21 09:45 Alprazolam (Xanax) 1 mg 1X ONCE PO 12/07/21 03:00 12/07/21 03:01 DC 12/07/21 03:02 Tramadol HCl (Ultram) 50 mg PRN Q6HRS PRN PO PAIN 12/07/21 03:00 12/07/21 09:46 Methylprednisolone Acetate (DEPO-Medrol 80MG VIAL) 80 mg 1X ONCE IM 12/07/21 13:00 12/07/21 13:02 DC 12/07/21 13:00 Bupivacaine HCl (Sensorcaine-Mpf 0.25%) 10 ml 1X ONCE IJ 12/07/21 13:00 12/07/21 13:02 DC 12/07/21 13:00 Justifications for Admission Other Justification ALISHA BROOKE MD Dec 07, 2021 14:36
--- NOTE | 2021-12-07 14:37 | RAD ---
Study: XR KNEE_AP BILAT STANDING Indication: Knee pain. Degenerative joint disease. Comparison: Right knee radiographs 12/06/2021 Findings: Single AP standing radiograph of both knees. Right knee: As previously described, moderate/severe medial and lateral femorotibial compartment joint space narr owing. Degenerative lateral translation of the tibia relative to the femur. Joint line osteophytes an d degenerative irregularity of the articular surfaces. Osteopenia. Left knee: Horizontally oriented surgical screws at the proximal tibia. The screws are intact and appear well fi xated. Moderate lateral and mild medial femorotibial compartment joint space narrowing. Lateral large r than medial joint line osteophytes. Osteopenia. Impression: Right knee: 1. Moderate/severe arthrosis at the femorotibial articulation better characterized on the dedicated r ight knee radiographs from 12/06/2021. 2. Osteopenia. Left knee: 1. Intact and well fixated surgical screws at the proximal tibia. 2. Mild/moderate arthrosis at the partially assessed left knee with involvement of the lateral compar tment more so than the medial compartment. 3. Osteopenia. Electronically signed by: LAM DOZIER MD (12/07/2021 2:35 PM) [facility]
[2021-12-07] MEDS ORDERED: oxyCODONE/APAP 5/325 1 TAB TABLET PO PRN ×2 (14:45)
[2021-12-07 15:00] VITALS: BP 164/67
[2021-12-07 19:00] VITALS: BP 112/54
[2021-12-07] MEDS ORDERED: DICLOFENAC SODIUM 1% TOPICAL GEL 100GM TUBE. TP SCH (21:00)
[2021-12-07] MEDS: PHENYTOIN SODIUM EXTENDED 100 MG CAPSULE PO SCH (21:25)
[2021-12-07] MEDS: ATORVASTATIN CALCIUM 20 MG TABLET PO SCH (21:25)
[2021-12-07] MEDS: ENOXAPARIN 40 MG/0.4 ML SYRINGE. SQ SCH (21:26)
[2021-12-07] MEDS: TEMAZEPAM 15 MG CAPSULE PO SCH (21:26)
[2021-12-07] MEDS: DICLOFENAC SODIUM 1% TOPICAL GEL 100GM TUBE. TP SCH (21:26)
[2021-12-07 23:00] VITALS: BP 141/73
[2021-12-08] MEDS: ALPRAZolam 1 MG TABLET PO SCH ×3 (04:16→21:04)
[2021-12-08 07:00] VITALS: BP 167/69
[2021-12-08] MEDS: carBAMazepine 200 MG TABLET PO SCH ×2 (08:13→21:04)
[2021-12-08] MEDS: LOSARTAN POTASSIUM 50 MG TABLET. PO SCH (08:15)
[2021-12-08] MEDS: DICLOFENAC SODIUM 1% TOPICAL GEL 100GM TUBE. TP SCH ×2 (08:16→21:04)
--- NOTE | 2021-12-08 09:40 | NUR ---
PATIENT WITH C/O CHEST PAIN AT THIS TIME, NEW ONSET, PATIENT ALERT AND VERBALLY AND IN BED AT THIS TIME, WILL ORDER STAT EKG, TROPONIN LEVELS AND INFORM DR. BROOKE.
--- NOTE | 2021-12-08 09:59 | EKG ---
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
--- NOTE | 2021-12-08 10:02 | NUR ---
SW following. Discussed with RN, CORI attempted to meet with pt to discuss SNF placement, however pt was having some chest pain and was going to be getting some STAT testing. RN requested SW return later. CORI will continue to follow. Addendum: 12/08/21 at 1311 by ANGEL PERSAUD CORI met with pt, pt agreeable to SNF, would like referral to [facility]. Referral phoned and faxed, awaiting acceptance decision. CORI requested COVID PCR for placement. Pt has had both doses of Pfizer plus the booster. Addendum: 12/08/21 at 1554 by ANGEL PERSAUD Pt accepted at [facility], can discharge there tomorrow pending negative COVID test. Dr. Verma notified. CORI requested Dr. Verma put in COVID PCR order as CORI cannot see this has been ordered yet.
[2021-12-08 11:00] VITALS: BP_SYST 153; BP_SYST 188; BP_DIAS 65; BP_DIAS 81
[2021-12-08] MEDS: HYDROmorphone 2 MG/ML INJ. IVP PRN ×2 (11:02→21:03)
[2021-12-08 11:22] VITALS: BP 181/79
--- NOTE | 2021-12-08 11:41 | PDOC2 ---
RUY EASTON TECHNICAL INSTRUCTOR COURSE DEVELOPER 12/08/21 1141: CARDIAC CONSULT DATE OF CONSULT Date of Consult DATE: 12/08/21 TIME: 11:30 REASON FOR CONSULT Reason for Consult: AFIB, near syncope, chest pain REFERRING PHYSICIAN Referring Physician: Dr. Verma SOURCE Source: Chart review, Patient HISTORY OF PRESENT ILLNESS HISTORY OF PRESENT ILLNESS This is a 76 yo female who presented secondary to fall. Patient reports getting her COVID booster this past Sunday. Has not felt well since. Reports feeling like she had the "flu". Reports feeling very fatigued and achy. On Sunday, she got up out of bed to use restroom at bedside. Stood up and felt dizzy/lightheaded and legs gave out. Subsequently fell to the ground. Did not hit her head or LOC. This morning, developed aching pain in her central chest. Pain with with applying pressure to the chest. No associated dizziness, diaphoresis, palpitations, or nausea/vomiting. Is concerns that blood pressure in significantly elevated upon arrival. EKG obtain and read out as AFIB. EKG reviewed and appears to be sinus rhythm, although contains much artifact. Is not presently on telemetry. PAST MEDICAL HISTORY Cardiovascular: HTN Pulmonary: Asthma CENTRAL NERVOUS SYSTEM: Seizure Musculoskeletal: Osteoarthritis, Other (Scoliosis ) PAST SURGICAL HISTORY Past Surgical History: Hysterectomy, Colon Resection, Other (left knee and left wrist surgery ) FAMILY HISTORY Family History: High Cholestrol SOCIAL HISTORY Smoke: No ALCOHOL: none Drugs: None Lives: with Family CURRENT MEDICATIONS CURRENT MEDICATIONS Current Medications Medications (Trade) Dose Ordered Sig/Caro Route PRN Reason Start Time Stop Time Status Last Admin Dose Admin Methylprednisolone Acetate (DEPO-Medrol 80MG VIAL) 80 mg 1X ONCE IM 12/07/21 13:00 12/07/21 13:02 DC 12/07/21 13:00 Bupivacaine HCl (Sensorcaine-Mpf 0.25%) 10 ml 1X ONCE IJ 12/07/21 13:00 12/07/21 13:02 DC 12/07/21 13:00 Diclofenac Sodium (Voltaren) 1 jayesh BID TP 12/07/21 21:00 12/08/21 08:16 Enoxaparin Sodium (Lovenox 40mg Syringe) 40 mg Q24H SQ 12/07/21 21:00 12/07/21 21:26 Hydromorphone HCl (Dilaudid) 0.2 mg PRN Q4HRS PRN IVP MODERATE TO SEVERE PAIN 12/08/21 10:00 12/08/21 11:02 ALLERGIES ALLERGIES: Coded Allergies: morphine (Unverified Allergy, Mild, 06/06/15) furosemide (Verified Adverse Reaction, Intermediate, "dizzy", 03/04/15) ROS Review of System 14 point ROS conducted with pertinent positives noted above in HPI PHYSICAL EXAM General: Alert, Oriented X3, Cooperative, No acute distress HEENT: Atraumatic Lungs: Clear to auscultation, Other (central chest tenderness upon palpitation) Heart: Regular rate (heart tones regular, not on tele) Abdomen: Soft, No tenderness Extremities: No edema Skin: No significant lesion Neuro: Normal speech, Sensation intact Psych/Mental Status: Mental status NL, Mood NL MUSCULOSKELETAL: Osteoarthritic changes both hands VITALS/I&O VITALS/I&O: Vital Signs Date Time Temp Pulse Resp B/P (MAP) Pulse Ox O2 Delivery O2 Flow Rate FiO2 12/08/21 11:22 102 181/79 (113) 95 12/08/21 11:02 20 Room Air 12/08/21 11:00 98.4 98.4 I & O 12/07/21 12/07/21 12/08/21 15:00 23:00 07:00 Intake Total 150 ml Balance 150 ml ECHOCARDIOGRAM ECHOCARDIOGRAM <Conclusion> The left ventricle is normal size. The left ventricular systolic function is normal and the ejection fraction is within normal range. LV ejection fraction is 55-60%. There is borderline concentric left ventricular hypertrophy. The left atrium is mildly dilated. There is mild valvular aortic stenosis. Doppler and Color Flow revealed trace aortic regurgitation. Doppler and Color-flow revealed mild to moderate mitral regurgitation. Doppler and Color Flow revealed no tricuspid valve regurgitation noted. DATE: 10/16/17 1659 ASSESSMENT/PLAN ASSESSMENT/PLAN 1. Dizziness, near syncope, fall; most probably vasovagal. EKG read as AFIB, but appears to be SR with artifact 2. Accelerated HTN; remains labile 3. Chest pain, atypical. Initial trop negative 4. Seizure disorder 5. Hyperlipidemia; on statin Recommendations Continue amlodipine, losartan Add BB therapy Hydralazine IV PRN ASA Telemetry monitoring Trend troponin Echocardiogram Consider outpatient ischemic evaluation HALIMA HAYNES MD 12/08/21 1823: CARDIAC CONSULT ASSESSMENT/PLAN ASSESSMENT/PLAN Patient seen and examined. Agree with INTERIOR ASSEMBLIES INSTALLER's assessment and plan. Near syncope most probably vasovagal etiology EKG and tele did not show any evidence for AF or any other arrhythmias CP with atypical features DC ruled out Check 2D echo to assess LVF and r/o WMA Plan ischemic evaluation as outpatient Thank you for your consultation RUY EASTON APRN Dec 08, 2021 11:41 HALIMA HAYNES MD Dec 08, 2021 18:23
--- NOTE | 2021-12-08 14:37 | PDOC ---
[facility] PROGRESS NOTE Date of Service DOS: DATE: 12/08/21 TIME: 14:33 Chief Complaint Chief Complaint Weakness and debility Multiple falls Hypertensive urgency Severe right knee osteoarthritis Near syncope Cardiology consulted for syncope work-up Pending pain and rehab consult evaluation IV antihypertensive regimens to maintain systolic blood pressure goals between [id number] IV n.p.o. pain control PT OT modalities Fall precautions Lovenox for DVT prophylaxis History of Present Illness History of Present Illness 76-year-old female who lives at home with her . She has been falling. She is weak. She is not eating. She states her knees are giving out. She has some rib pain, 5/10, worse with moving, better with sitting still. 12/07/2021 No acute events overnight. Patient seen examined bedside. Patient complaining of right knee pain that severe and severe tenderness upon palpation. No erythema or warmth upon palpation. Unable to elevate her lower extremity. Patient will need extensive rehab and pain management. 12/08/2021 No acute events overnight. Patient seen examined bedside. at bedside explaining to us that has been having dizziness upon standing. This has been occurring since June and thus is why she broke her arm. Will evaluate for her near syncope. Patient also had a chest pain episode that required some pain medication. Troponin was negative. Orthostatic vital signs are negative. EKG reading showed possible atrial fibrillation. Cardiology was consulted. Patient's chart, labs, images were reviewed and discussed with RN Vitals/I&O Vitals/I&O: Vital Signs Date Time Temp Pulse Resp B/P (MAP) Pulse Ox O2 Delivery O2 Flow Rate FiO2 12/08/21 11:35 20 94 Room Air 12/08/21 11:22 102 181/79 (113) 12/08/21 11:00 98.4 98.4 I & O 12/07/21 12/07/21 12/08/21 15:00 23:00 07:00 Intake Total 150 ml Balance 150 ml Physical Exam General: Alert, Oriented X3, Cooperative Lungs: Clear Abdomen: Normal bowel sounds Extremities: No clubbing, Other (Severe tenderness to palpation on the right knee) Skin: No rashes Assessment and Plan Assessmemt and Plan Problems Medical Problems: (1) Fall Status: Acute Comment Review of Relevant I have reviewed the following items raffaele (where applicable) has been applied. Medications: Current Medications Medications (Trade) Dose Ordered Sig/Caro Route PRN Reason Start Time Stop Time Status Last Admin Dose Admin Diclofenac Sodium (Voltaren) 1 jayesh BID TP 12/07/21 21:00 12/08/21 08:16 Enoxaparin Sodium (Lovenox 40mg Syringe) 40 mg Q24H SQ 12/07/21 21:00 12/07/21 21:26 Hydromorphone HCl (Dilaudid) 0.2 mg PRN Q4HRS PRN IVP MODERATE TO SEVERE PAIN 12/08/21 10:00 12/08/21 11:02 Justifications for Admission Other Justification ALISHA BROOKE MD Dec 08, 2021 14:37
[2021-12-08 15:00] VITALS: BP 157/60
[2021-12-08] MEDS ORDERED: hydrALAZINE 20 MG/ML VIAL. IVP PRN (15:45)
[2021-12-08] MEDS: CARVEDILOL 6.25 MG TABLET. PO SCH (16:41)
--- NOTE | 2021-12-08 16:52 | PDOC ---
PROGRESS NOTES Date of Service DATE: 12/08/21 TIME: 16:48 Subjective Subjective She feels better with her knee joint pain. Objective Objective Vital Signs Date Time Temp Pulse Resp B/P (MAP) Pulse Ox O2 Delivery O2 Flow Rate FiO2 12/08/21 16:41 77 157/60 12/08/21 15:00 98.1 19 98 98.1 12/08/21 11:35 Room Air Intake and Output 12/08/21 07:00 Intake Total 150 ml Balance 150 ml Intake Oral 150 ml # Voids 2 # Bowel Movements 1 Physical Exam Physical Exam She is alert,supine in bed and seems comfortable and she did not get up today as she had chest pain tthis AM. She had DJD of both knees and osteopenia. Assessment Assessment Problems Medical Problems: (1) Fall Status: Acute Plan Plan of Care To get her up as tolerated and to SNF when medically stable. Comment Review of Relevant I have reviewed the following items raffaele (where applicable) has been applied. Medications Current Medications Sodium Chloride 1,000 ml @ 1,000 mls/hr 1X ONCE IV Last administered on 12/06/21at 14:25; Start 12/06/21 at 13:30; Stop 12/06/21 at 14:29; Status DC Fentanyl Citrate (Fentanyl 2ml Vial) 50 mcg PRN Q2HR PRN IVP PAIN Last administered on 12/07/21at 03:02; Start 12/06/21 at 16:30; Stop 12/07/21 at 16:29; Status DC Hydralazine HCl (Apresoline Inj) 25 mg PRN Q6HRS PRN IVP ELEVATED BP, SEE COMMENTS; Start 12/06/21 at 18:30; Stop 12/06/21 at 18:30; Status DC Hydralazine HCl (Apresoline Inj) 20 mg PRN Q6HRS PRN IVP ELEVATED BP, SEE COMMENTS Last administered on 12/06/21at 18:41; Start 12/06/21 at 18:30; Stop 12/08/21 at 16:06; Status DC Alprazolam (Xanax) 1 mg TID PO Last administered on 12/08/21at 09:58; Start 12/06/21 at 21:00 Amlodipine Besylate (Norvasc) 10 mg DAILY PO Last administered on 12/08/21at 08:15; Start 12/07/21 at 09:00 Atorvastatin Calcium (Lipitor) 20 mg QHS PO Last administered on 12/07/21at 21:25; Start 12/06/21 at 21:00 Carbamazepine (TEGretol) 400 mg HS PO Last administered on 12/07/21at 21:26; Start 12/06/21 at 21:00 Carbamazepine (TEGretol) 600 mg DAILY08 PO Last administered on 12/08/21at 08:13; Start 12/07/21 at 08:00 Phenytoin Sodium (Dilantin) 400 mg HS PO Last administered on 12/07/21at 21:25; Start 12/06/21 at 21:00 Temazepam (Restoril) 30 mg HS PO Last administered on 12/07/21at 21:26; Start 12/06/21 at 21:00 Losartan Potassium (Cozaar) 100 mg DAILY PO Last administered on 12/08/21at 08:15; Start 12/07/21 at 09:00 Alprazolam (Xanax) 1 mg 1X ONCE PO Last administered on 12/07/21at 03:02; Start 12/07/21 at 03:00; Stop 12/07/21 at 03:01; Status DC Tramadol HCl (Ultram) 50 mg PRN Q6HRS PRN PO MILD PAIN, 2nd CHOICE Last administered on 12/07/21at 09:46; Start 12/07/21 at 03:00 Methylprednisolone Acetate (DEPO-Medrol 80MG VIAL) 80 mg 1X ONCE IM Last administered on 12/07/21at 13:00; Start 12/07/21 at 13:00; Stop 12/07/21 at 13:02; Status DC Bupivacaine HCl (Sensorcaine-Mpf 0.25%) 10 ml 1X ONCE IJ Last administered on 12/07/21at 13:00; Start 12/07/21 at 13:00; Stop 12/07/21 at 13:02; Status DC Diclofenac Sodium (Voltaren) 1 jayesh BID TP Last administered on 12/08/21at 08:16; Start 12/07/21 at 21:00 Enoxaparin Sodium (Lovenox 40mg Syringe) 40 mg Q24H SQ Last administered on 12/07/21at 21:26; Start 12/07/21 at 21:00 Oxycodone/ Acetaminophen (Percocet 5/325) 1 tab PRN Q4HRS PRN PO MILD PAIN, 1ST CHOICE; Start 12/07/21 at 14:45 Oxycodone/ Acetaminophen (Percocet 5/325) 2 tab PRN Q4HRS PRN PO MODERATE PAIN, SEVERE PAIN; Start 12/07/21 at 14:45 Diclofenac Sodium (Voltaren) 1 jayesh BID TP ; Start 12/07/21 at 21:00; Status UNV Hydromorphone HCl (Dilaudid) 0.2 mg PRN Q4HRS PRN IVP MODERATE TO SEVERE PAIN Last administered on 12/08/21at 11:02; Start 12/08/21 at 10:00 Carvedilol (Coreg) 6.25 mg BIDWMEALS PO Last administered on 12/08/21at 16:41; Start 12/08/21 at 17:00 Aspirin (Ecotrin) 81 mg DAILYWBKFT PO ; Start 12/09/21 at 08:00 Hydralazine HCl (Apresoline Inj) 10 mg PRN Q4HRS PRN IVP ELEVATED BP, SEE COMMENTS; Start 12/08/21 at 15:45 Active Scripts Active Tramadol Hcl 50 Mg Tablet 50 Mg PO PRN Q6HRS PRN Atorvastatin Calcium 20 Mg Tablet 20 Mg PO QHS 30 Days Reported Carbamazepine 200 Mg Tablet 400 Mg PO HS Temazepam 30 Mg Capsule 30 Mg PO HS Alprazolam 1 Mg Tablet 1 Mg PO TID Losartan Potassium 100 Mg Tablet 100 Mg PO DAILY Amlodipine Besylate 10 Mg Tablet 10 Mg PO DAILY Carbamazepine 200 Mg Tablet 600 Mg PO DAILY08 Phenytoin Sodium Extended 100 Mg Capsule 400 Mg PO HS Vitals/I & O Vital Sign - Last 24 Hours 12/07/21 12/07/21 12/07/21 12/08/21 19:00 21:30 23:00 07:00 Temp 98.0 97.8 98.3 98.0 97.8 98.3 Pulse 76 71 69 Resp 18 18 20 B/P (MAP) 112/54 (73) 141/73 (95) 167/69 (101) Pulse Ox 97 95 95 O2 Delivery Room Air 12/08/21 12/08/21 12/08/21 12/08/21 08:00 08:15 08:15 11:00 Pulse 69 69 71 B/P (MAP) 167/69 167/69 188/81 (116) Pulse Ox 96 O2 Delivery Room Air 12/08/21 12/08/21 12/08/21 12/08/21 11:00 11:02 11:22 11:35 Temp 98.4 98.4 Pulse 65 102 Resp 19 20 20 B/P (MAP) 153/65 (94) 181/79 (113) Pulse Ox 95 93 95 94 O2 Delivery Room Air Room Air 12/08/21 12/08/21 15:00 16:41 Temp 98.1 98.1 Pulse 77 77 Resp 19 B/P (MAP) 157/60 (92) 157/60 Pulse Ox 98 Intake and Output 12/07/21 12/07/21 12/08/21 15:00 23:00 07:00 Intake Total 150 ml Balance 150 ml Justifications for Admission Other Justification SUNNY JOHNSTON MD Dec 08, 2021 16:52
[2021-12-08 19:00] VITALS: BP 147/57
[2021-12-08] MEDS: ENOXAPARIN 40 MG/0.4 ML SYRINGE. SQ SCH (21:04)
[2021-12-08] MEDS: ATORVASTATIN CALCIUM 20 MG TABLET PO SCH (21:04)
[2021-12-08] MEDS: TEMAZEPAM 15 MG CAPSULE PO SCH (21:04)
[2021-12-08] MEDS: PHENYTOIN SODIUM EXTENDED 100 MG CAPSULE PO SCH (21:04)
[2021-12-09] MEDS: HYDROmorphone 2 MG/ML INJ. IVP PRN (05:03)
[2021-12-09 07:00] VITALS: BP 173/79
[2021-12-09] MEDS ORDERED: MECLIZINE HCL 12.5 MG TABLET. PO PRN (07:45)
[2021-12-09] MEDS ORDERED: ASPIRIN ENTERIC COATED 81 MG TABLET.DR. PO SCH (08:00)
[2021-12-09] MEDS: carBAMazepine 200 MG TABLET PO SCH (08:22)
[2021-12-09] MEDS: LOSARTAN POTASSIUM 50 MG TABLET. PO SCH (08:23)
[2021-12-09] MEDS: CARVEDILOL 6.25 MG TABLET. PO SCH (08:23)
[2021-12-09] MEDS: DICLOFENAC SODIUM 1% TOPICAL GEL 100GM TUBE. TP SCH (08:24)
[2021-12-09] MEDS: ALPRAZolam 1 MG TABLET PO SCH (08:24)
[2021-12-09] MEDS ORDERED: CARV6.2511 PO (09:33)
[2021-12-09] MEDS ORDERED: ASPI-886 PO (09:33)
[2021-12-09] MEDS ORDERED: MECL12.582 PO (09:33)
--- NOTE | 2021-12-09 09:35 | SNU/HH DC ---
DISCHARGE ORDERS DISCHARGE INFORMATION: DISCHARGE DATE: Dec 09, 2021 FINAL DIAGNOSIS Problems Medical Problems: (1) Fall Status: Acute CONDITION ON DISCHARGE: Stable CODE STATUS: Code Status: Full DETENTION: SNF STAY <30 DAYS: Yes POST DISCHARGE ORDERS: ACTIVITY ORDERS: Activity as tolerated WEIGHT BEARING STATUS: As tolerated DIET AFTER DISCHARGE: Regular WOUND/INCISION CARE: Keep wound/cast CDI, Reinforce dressing PRN CHECKS AFTER DISCHARGE: CHECKS AFTER DISCHARGE: Check blood press - daily FOLLOW-UP: PHYSICIAN FOLLOW-UP: PCP within 2 weeks of discharge ADDITIONAL FOLLOW-UP: Orthopedic surgery as needed TREATMENT/EQUIPMENT ORDERS: ADAPTIVE EQUIPMENT NEEDED: None Physical Therapy For: Evalulation/Treatment Occupational Therapy For: Evaluation/Treatment DISCHARGE MEDICATIONS: Home Meds Active Scripts Meclizine Hcl (MECLIZINE HCL) 12.5 Mg Tablet, 12.5 MG PO PRN Q6HRS PRN for DIZZINESS for 3 Days, #12 TAB Prov:ALISHA BROOKE MD 12/09/21 Aspirin (ASPIRIN EC) 81 Mg Tablet.dr, 81 MG PO DAILYWBKFT for secondary heart prevention for 30 Days, #30 TAB.SR Prov:ALISHA BROKOE MD 12/09/21 Carvedilol (CARVEDILOL ) 6.25 Mg Tablet, 6.25 MG PO BIDWMEALS for heart rate for 30 Days, #60 TAB 2 Refills Prov:ALISHA BROOKE MD 12/09/21 Tramadol Hcl (TRAMADOL HCL) 50 Mg Tablet, 50 MG PO PRN Q6HRS PRN for PAIN MODERATE/SEVERE, #30 TAB Prov:CAROLINA REECE MD 07/07/21 Atorvastatin Calcium (ATORVASTATIN CALCIUM) 20 Mg Tablet, 20 MG PO QHS for 30 Days, #30 TAB 5 Refills Prov:Isa MARTÍNEZ MD 10/16/17 Reported Medications Carbamazepine (CARBAMAZEPINE) 200 Mg Tablet, 400 MG PO HS 03/03/15 Temazepam (TEMAZEPAM) 30 Mg Capsule, 30 MG PO HS 01/16/14 Losartan Potassium (LOSARTAN POTASSIUM) 100 Mg Tablet, 100 MG PO DAILY 01/16/14 Amlodipine Besylate (AMLODIPINE BESYLATE) 10 Mg Tablet, 10 MG PO DAILY 01/16/14 Carbamazepine (CARBAMAZEPINE) 200 Mg Tablet, 600 MG PO DAILY08 01/16/14 Phenytoin Sodium Extended (PHENYTOIN SODIUM EXTENDED) 100 Mg Capsule, 400 MG PO HS 01/16/14 Discontinued Reported Medications Alprazolam (ALPRAZOLAM) 1 Mg Tablet, 1 MG PO TID 01/16/14 ALISHA BROOKE MD Dec 09, 2021 09:35
[2021-12-09] MEDS ORDERED: SERT-267 PO (09:40)
--- NOTE | 2021-12-09 09:42 | PDOC ---
PROGRESS NOTES Date of Service DATE: 12/09/21 TIME: 09:40 Subjective Subjective No new complaints. Objective Objective Vital Signs Date Time Temp Pulse Resp B/P (MAP) Pulse Ox O2 Delivery O2 Flow Rate FiO2 12/09/21 08:24 60 173/79 12/09/21 07:00 97.8 20 96 Room Air 97.8 Intake and Output 12/09/21 06:59 Intake Total 0 ml Output Total 300 ml Balance -300 ml Intake Oral 0 ml Output Urine Total 300 ml Physical Exam Physical Exam She is alert,supine in bed and she continues with mobility and self care limitations. Assessment Assessment Problems Medical Problems: (1) Fall Status: Acute Plan Plan of Care To get her up as tolerated and to SNF when medically stable. Comment Review of Relevant I have reviewed the following items raffaele (where applicable) has been applied. Labs Laboratory Tests Test 12/08/21 18:30 12/09/21 04:15 Troponin I High Sensitivity 15 ng/L (4-50) 12 ng/L (4-50) Triglycerides Level 83 mg/dL (0-150) Cholesterol Level 210 mg/dL (0-200) LDL Cholesterol, Calculated 140 mg/dL (0-100) VLDL Cholesterol, Calculated 17 mg/dL (0-40) Non-HDL Cholesterol Calculated 157 mg/dL (0-129) HDL Cholesterol 53 mg/dL (40-60) Cholesterol/HDL Ratio 4.0 Laboratory Tests Test 12/08/21 18:30 12/09/21 04:15 Troponin I High Sensitivity 15 ng/L (4-50) 12 ng/L (4-50) Triglycerides Level 83 mg/dL (0-150) Cholesterol Level 210 mg/dL (0-200) LDL Cholesterol, Calculated 140 mg/dL (0-100) VLDL Cholesterol, Calculated 17 mg/dL (0-40) Non-HDL Cholesterol Calculated 157 mg/dL (0-129) HDL Cholesterol 53 mg/dL (40-60) Cholesterol/HDL Ratio 4.0 Medications Current Medications Sodium Chloride 1,000 ml @ 1,000 mls/hr 1X ONCE IV Last administered on 12/06/21at 14:25; Start 12/06/21 at 13:30; Stop 12/06/21 at 14:29; Status DC Fentanyl Citrate (Fentanyl 2ml Vial) 50 mcg PRN Q2HR PRN IVP PAIN Last administered on 12/07/21at 03:02; Start 12/06/21 at 16:30; Stop 12/07/21 at 16:29; Status DC Hydralazine HCl (Apresoline Inj) 25 mg PRN Q6HRS PRN IVP ELEVATED BP, SEE COMMENTS; Start 12/06/21 at 18:30; Stop 12/06/21 at 18:30; Status DC Hydralazine HCl (Apresoline Inj) 20 mg PRN Q6HRS PRN IVP ELEVATED BP, SEE COMMENTS Last administered on 12/06/21at 18:41; Start 12/06/21 at 18:30; Stop 12/08/21 at 16:06; Status DC Alprazolam (Xanax) 1 mg TID PO Last administered on 12/09/21at 08:24; Start 12/06/21 at 21:00 Amlodipine Besylate (Norvasc) 10 mg DAILY PO Last administered on 12/09/21at 08:24; Start 12/07/21 at 09:00 Atorvastatin Calcium (Lipitor) 20 mg QHS PO Last administered on 12/08/21at 21:04; Start 12/06/21 at 21:00 Carbamazepine (TEGretol) 400 mg HS PO Last administered on 12/08/21at 21:04; Start 12/06/21 at 21:00 Carbamazepine (TEGretol) 600 mg DAILY08 PO Last administered on 12/09/21at 08:22; Start 12/07/21 at 08:00 Phenytoin Sodium (Dilantin) 400 mg HS PO Last administered on 12/08/21at 21:04; Start 12/06/21 at 21:00 Temazepam (Restoril) 30 mg HS PO Last administered on 12/08/21at 21:04; Start 12/06/21 at 21:00 Losartan Potassium (Cozaar) 100 mg DAILY PO Last administered on 12/09/21at 08:23; Start 12/07/21 at 09:00 Alprazolam (Xanax) 1 mg 1X ONCE PO Last administered on 12/07/21at 03:02; Start 12/07/21 at 03:00; Stop 12/07/21 at 03:01; Status DC Tramadol HCl (Ultram) 50 mg PRN Q6HRS PRN PO MILD PAIN, 2nd CHOICE Last administered on 12/07/21at 09:46; Start 12/07/21 at 03:00 Methylprednisolone Acetate (DEPO-Medrol 80MG VIAL) 80 mg 1X ONCE IM Last administered on 12/07/21at 13:00; Start 12/07/21 at 13:00; Stop 12/07/21 at 13:02; Status DC Bupivacaine HCl (Sensorcaine-Mpf 0.25%) 10 ml 1X ONCE IJ Last administered on 12/07/21at 13:00; Start 12/07/21 at 13:00; Stop 12/07/21 at 13:02; Status DC Diclofenac Sodium (Voltaren) 1 jayesh BID TP Last administered on 12/09/21at 08:24; Start 12/07/21 at 21:00 Enoxaparin Sodium (Lovenox 40mg Syringe) 40 mg Q24H SQ Last administered on 12/08/21at 21:04; Start 12/07/21 at 21:00 Oxycodone/ Acetaminophen (Percocet 5/325) 1 tab PRN Q4HRS PRN PO MILD PAIN, 1ST CHOICE; Start 12/07/21 at 14:45 Oxycodone/ Acetaminophen (Percocet 5/325) 2 tab PRN Q4HRS PRN PO MODERATE PAIN, SEVERE PAIN; Start 12/07/21 at 14:45 Diclofenac Sodium (Voltaren) 1 jayesh BID TP ; Start 12/07/21 at 21:00; Status UNV Hydromorphone HCl (Dilaudid) 0.2 mg PRN Q4HRS PRN IVP MODERATE TO SEVERE PAIN Last administered on 12/09/21at 05:03; Start 12/08/21 at 10:00 Carvedilol (Coreg) 6.25 mg BIDWMEALS PO Last administered on 12/09/21at 08:23; Start 12/08/21 at 17:00 Aspirin (Ecotrin) 81 mg DAILYWBKFT PO Last administered on 12/09/21at 08:23; Start 12/09/21 at 08:00 Hydralazine HCl (Apresoline Inj) 10 mg PRN Q4HRS PRN IVP ELEVATED BP, SEE COMMENTS; Start 12/08/21 at 15:45 Meclizine HCl (Antivert) 12.5 mg PRN Q6HRS PRN PO DIZZINESS; Start 12/09/21 at 07:45 Active Scripts Active Meclizine Hcl 12.5 Mg Tablet 12.5 Mg PO PRN Q6HRS PRN 3 Days Aspirin Ec (Aspirin) 81 Mg Tablet.dr 81 Mg PO DAILYWBKFT 30 Days Carvedilol (Carvedilol) 6.25 Mg Tablet 6.25 Mg PO BIDWMEALS 30 Days Tramadol Hcl 50 Mg Tablet 50 Mg PO PRN Q6HRS PRN Atorvastatin Calcium 20 Mg Tablet 20 Mg PO QHS 30 Days Reported Carbamazepine 200 Mg Tablet 400 Mg PO HS Temazepam 30 Mg Capsule 30 Mg PO HS Losartan Potassium 100 Mg Tablet 100 Mg PO DAILY Amlodipine Besylate 10 Mg Tablet 10 Mg PO DAILY Carbamazepine 200 Mg Tablet 600 Mg PO DAILY08 Phenytoin Sodium Extended 100 Mg Capsule 400 Mg PO HS Vitals/I & O Vital Sign - Last 24 Hours 12/08/21 12/08/21 12/08/21 12/08/21 11:00 11:00 11:02 11:22 Temp 98.4 98.4 Pulse 71 65 102 Resp 19 20 B/P (MAP) 188/81 (116) 153/65 (94) 181/79 (113) Pulse Ox 96 95 93 95 O2 Delivery Room Air 12/08/21 12/08/21 12/08/21 12/08/21 11:35 15:00 16:41 19:00 Temp 98.1 98.1 98.1 98.1 Pulse 77 77 62 Resp 20 19 18 B/P (MAP) 157/60 (92) 157/60 147/57 (87) Pulse Ox 94 98 96 O2 Delivery Room Air 12/08/21 12/08/21 12/08/21 12/09/21 20:00 21:03 21:33 05:03 Pulse Ox 96 96 96 O2 Delivery Room Air Room Air Room Air Room Air 12/09/21 12/09/21 12/09/21 12/09/21 05:33 07:00 08:23 08:23 Temp 97.8 97.8 Pulse 60 60 60 Resp 20 B/P (MAP) 173/79 (110) 173/79 173/79 Pulse Ox 96 96 O2 Delivery Room Air Room Air 12/09/21 08:24 Pulse 60 B/P (MAP) 173/79 Intake and Output 0 12/08/21 12/08/21 12/09/21 14:59 22:59 06:59 Intake Total 0 ml 0 ml Output Total 300 ml Balance 0 ml -300 ml Justifications for Admission Other Justification SUNNY JOHNSTON MD Dec 09, 2021 09:42
[2021-12-09] MEDS ORDERED: AMLO-187 PO (09:43)
[2021-12-09] MEDS ORDERED: LOSA-73 PO (09:43)
--- NOTE | 2021-12-09 10:36 | NUR ---
SW following. Discussed with RN, discharge orders faxed to [facility], awaiting COVID result for discharge. [facility]I will continue to follow. Addendum: 12/09/21 at 1123 by ANGEL PERSAUD COVID-19 negative result returned. [facility] arranged [facility] for between [id number]. RN and [facility] notified.
[2021-12-09 10:40] VITALS: BP 138/38
--- NOTE | 2021-12-09 12:24 | PDOC ---
PROGRESS NOTES Date of Service: DATE: 12/09/21 TIME: 12:11 Subjective Subjective No new complaints Objective Objective Vital Signs Date Time Temp Pulse Resp B/P (MAP) Pulse Ox O2 Delivery O2 Flow Rate FiO2 12/09/21 10:40 98.0 60 18 138/38 (71) 97 Room Air 98.0 Intake and Output 12/09/21 07:00 Intake Total 0 ml Output Total 300 ml Balance -300 ml Intake Oral 0 ml Output Urine Total 300 ml Physical Exam Abdomen: Soft, No tenderness Heart: Regular rate (heart tones regular, not on tele) Extremities: No edema General: Alert, Oriented X3, Cooperative, No acute distress HEENT: Atraumatic Lungs: Clear to auscultation, Other (central chest tenderness upon palpitation) Neuro: Normal speech, Sensation intact Psych/Mental Status: Mental status NL, Mood NL Skin: No significant lesion Assessment Assessment 1. Dizziness, near syncope, fall; most probably vasovagal. EKG read as AFIB, but showed SR with artifact. Telemetry without any significant arrhythmias. 2. Accelerated HTN; better controlled: Continue current medical regimen 3. Chest pain, atypical. Myocardial infarction has been ruled out. Plan ischemic evaluation as an outpatient. 4. Seizure disorder: Continue current medications 5. Hyperlipidemia; on statin Plan Plan of Care Problems Medical Problems: (1) Fall Status: Acute Comment Review of Relevant I have reviewed the following items raffaele (where applicable) has been applied. Labs Laboratory Tests Test 12/08/21 18:30 12/08/21 19:00 12/09/21 04:15 Troponin I High Sensitivity 15 ng/L (4-50) 12 ng/L (4-50) Triglycerides Level 83 mg/dL (0-150) Cholesterol Level 210 mg/dL (0-200) LDL Cholesterol, Calculated 140 mg/dL (0-100) VLDL Cholesterol, Calculated 17 mg/dL (0-40) Non-HDL Cholesterol Calculated 157 mg/dL (0-129) HDL Cholesterol 53 mg/dL (40-60) Cholesterol/HDL Ratio 4.0 SARS-CoV-2 RNA (CANELO) Negative (Negative) Medications Current Medications Aspirin (Ecotrin) 81 mg DAILYWBKFT PO Last administered on 12/09/21at 08:23; Start 12/09/21 at 08:00 Carvedilol (Coreg) 6.25 mg BIDWMEALS PO Last administered on 12/09/21at 08:23; Start 12/08/21 at 17:00 Hydralazine HCl (Apresoline Inj) 10 mg PRN Q4HRS PRN IVP ELEVATED BP, SEE COMMENTS; Start 12/08/21 at 15:45 Meclizine HCl (Antivert) 12.5 mg PRN Q6HRS PRN PO DIZZINESS; Start 12/09/21 at 07:45 Vitals/I & O Vital Sign - Last 24 Hours 12/08/21 12/08/21 12/08/21 12/08/21 15:00 16:41 19:00 20:00 Temp 98.1 98.1 98.1 98.1 Pulse 77 77 62 Resp 19 18 B/P (MAP) 157/60 (92) 157/60 147/57 (87) Pulse Ox 98 96 O2 Delivery Room Air 12/08/21 12/08/21 12/09/21 12/09/21 21:03 21:33 05:03 05:33 Pulse Ox 96 96 96 96 O2 Delivery Room Air Room Air Room Air Room Air 12/09/21 12/09/21 12/09/21 12/09/21 07:00 08:00 08:23 08:23 Temp 97.8 97.8 Pulse 60 60 60 Resp 20 B/P (MAP) 173/79 (110) 173/79 173/79 Pulse Ox 96 O2 Delivery Room Air Room Air 12/09/21 12/09/21 08:24 10:40 Temp 98.0 98.0 Pulse 60 60 Resp 18 B/P (MAP) 173/79 138/38 (71) Pulse Ox 97 O2 Delivery Room Air Intake and Output 12/08/21 12/08/21 12/09/21 15:00 23:00 07:00 Intake Total 0 ml 0 ml Output Total 300 ml Balance 0 ml -300 ml HALIMA HAYNES MD Dec 09, 2021 12:24
--- NOTE | 2021-12-09 12:45 | PDOC ---
CARDIO Progress Notes Date and Time Date of Service 12/09/2021 Time of Evaluation 1145 Subjective Subjective: No Chest Pain, No shortness of breath, No Palpitations, Other (did not sleep well) Vitals Vitals Vital Signs Date Time Temp Pulse Resp B/P (MAP) Pulse Ox O2 Delivery O2 Flow Rate FiO2 12/09/21 10:40 98.0 60 18 138/38 (71) 97 Room Air 98.0 Weight Weight [ ] Input and Output Intake and Output Intake and Output 12/09/21 07:00 Intake Total 0 ml Output Total 300 ml Balance -300 ml Intake Oral 0 ml Output Urine Total 300 ml Laboratory Labs Laboratory Tests Test 12/08/21 18:30 12/08/21 19:00 12/09/21 04:15 Troponin I High Sensitivity 15 ng/L (4-50) 12 ng/L (4-50) Triglycerides Level 83 mg/dL (0-150) Cholesterol Level 210 mg/dL (0-200) LDL Cholesterol, Calculated 140 mg/dL (0-100) VLDL Cholesterol, Calculated 17 mg/dL (0-40) Non-HDL Cholesterol Calculated 157 mg/dL (0-129) HDL Cholesterol 53 mg/dL (40-60) Cholesterol/HDL Ratio 4.0 SARS-CoV-2 RNA (CANELO) Negative (Negative) Physical Exam HEENT: Neck Supple W Full Motion Chest: Symmetric LUNGS: Clear to Auscultation Heart: S1S2, RRR (SR) Abdomen: Soft N/T Extremities: No Calf Tenderness Neurology: alert, oriented, follow commands Assessment Assessment 1. Dizziness, near syncope, fall; most probably vasovagal. EKG read as AFIB, but appears to be SR with artifact. Maintating SR 2. Accelerated HTN; remains labile 3. Chest pain, atypical.trops nml 4. Seizure disorder 5. Hyperlipidemia; on statin Recommendations Continue amlodipine, losartan, coreg. If BP continues to have labile swings then will need to reeval BP regimen for further adjustment as dilantin/tegretol which are inducers could contribute to inadequate bioavailability Hydralazine IV PRN ASA, increase statin Echocardiogram Consider outpatient ischemic evaluation Follow up in office Justicifation of Admission Dx: Justifications for Admission: Justification of Admission Dx: Yes Fracture: Fracture ROBBI CANALES BACK GRAY CLOTH WASHER Dec 09, 2021 12:45
--- NOTE | 2021-12-09 13:19 | NUR ---
REPORT CALLED TO NIDA (NURSE AT [facility]), QUESTIONS AND CONCERNS ANSWERED, PATIENTS' DAUGHTER AT THE BEDSIDE AT THIS TIME, DISCHARGE INSTRUCTIONS GIVEN QUESTIONS AND CONCERNS ANSWERED. PATIENT IN BED AWAITING [facility] TO [facility].
--- NOTE | 2021-12-09 13:45 | NUR ---
[facility] HERE, PATIENT LEAVES THE UNIT PER STRETCHER AND ACCOMPANIED BY HER DAUGHTER AND TWO DRIVERS, EMOTIONAL SUPPORT GIVEN, FOLLOW UP APPOINTMENTS ENCOURAGED.
--- NOTE | 2021-12-09 17:12 | CARD ---
MR#: [id number] Date of Study: 12/09/2021 Ordering Physician: RUY EASTON, Referring Physician: RUY EASTON, Tech: Darshana Espitia [facility] APPROVED REPORT EXAM: Two-dimensional and M-mode echocardiogram with Doppler and color Doppler. Other Information Quality : Technically LimitedHR: 65bpm Rhythm : NSRTechnically limited study due to body habitus. INDICATION Chest Pain RISK FACTORS Hypertension Obesity Hyperlipidemia 2D DIMENSIONS RVDd2.8 (2.9-3.5cm)Left Atrium(2D)5.1 (1.6-4.0cm) IVSd1.1 (0.7-1.1cm)Aortic Root(2D)3.3 (2.0-3.7cm) LVDd4.0 (3.9-5.9cm)PWd1.1 (0.7-1.1cm) LEFT VENTRICLE The left ventricle is normal size. There is mild concentric left ventricular hypertrophy. The left ve ntricular systolic function is normal and the ejection fraction is within normal range. Estimaqted ej ection fraction 65%. There is normal LV segmental wall motion. Transmitral Doppler flow pattern is Gr teddy I-abnormal relaxation pattern. RIGHT VENTRICLE The right ventricle is normal size. There is normal right ventricular wall thickness. The right ventr icular systolic function is normal. ATRIA The left atrium size is normal. The right atrium size is normal. The interatrial septum is intact wit h no evidence for an atrial septal defect or patent foramen ovale as noted on 2-D or Doppler imaging. AORTIC VALVE The aortic valve is normal in structure and function. Doppler and Color Flow revealed no significant aortic regurgitation. There is no significant aortic valvular stenosis. MITRAL VALVE The mitral valve is normal in structure and function. There is no evidence of mitral valve prolapse. There is no mitral valve stenosis. Doppler and Color-flow revealed trace mitral regurgitation. TRICUSPID VALVE The tricuspid valve is normal in structure and function. Doppler and Color Flow revealed trace tricus pid regurgitation. There is no tricuspid valve stenosis. PULMONIC VALVE Doppler and Color Flow revealed no pulmonic valvular regurgitation. There is no pulmonic valvular aparna nosis. GREAT VESSELS The aortic root is normal in size. The ascending aorta is normal in size. The IVC is normal in size a nd collapses >50% with inspiration. PERICARDIAL EFFUSION There is no evidence of significant pericardial effusion. Critical Notification Critical Value: No <Conclusion> The left ventricular systolic function is normal and the ejection fraction is within normal range. E stimaqted ejection fraction 65%. There is normal LV segmental wall motion. Signed by : Stepan Roy, Electronically Approved : 12/09/2021 17:12:13
[2021-12-10] MEDS ORDERED: ALPR0.5T6 PO (11:57)
--- NOTE | 2021-12-12 13:14 | PDOC3 ---
[facility]-Discharge Summary Date of Admission: Date of Admission: Dec 06, 2021 Date of Discharge: Date of Discharge: Dec 09, 2021 Discharge Diagnosis: Discharge Diagnosis: Weakness and debility Multiple falls Hypertensive urgency Severe right knee osteoarthritis Near syncope Consults: Consults: Per cardiology: Assessment 1. Dizziness, near syncope, fall; most probably vasovagal. EKG read as AFIB, but appears to be SR with artifact. Maintating SR 2. Accelerated HTN; remains labile 3. Chest pain, atypical.trops nml 4. Seizure disorder 5. Hyperlipidemia; on statin Recommendations Continue amlodipine, losartan, coreg. If BP continues to have labile swings then will need to reeval BP regimen for further adjustment as dilantin/tegretol which are inducers could contribute to inadequate bioavailability Hydralazine IV PRN ASA, increase statin Echocardiogram Consider outpatient ischemic evaluation Follow up in office Hospital Course: Hospital Course: 76-year-old female who lives at home with her . She has been falling. She is weak. She is not eating. She states her knees are giving out. She has some rib pain, 5/10, worse with moving, better with sitting still. 12/07/2021 No acute events overnight. Patient seen examined bedside. Patient complaining of right knee pain that severe and severe tenderness upon palpation. No erythema or warmth upon palpation. Unable to elevate her lower extremity. Patient will need extensive rehab and pain management. 12/08/2021 No acute events overnight. Patient seen examined bedside. at bedside explaining to us that has been having dizziness upon standing. This has been occurring since June and thus is why she broke her arm. Will evaluate for her near syncope. Patient also had a chest pain episode that required some pain medication. Troponin was negative. Orthostatic vital signs are negative. EKG reading showed possible atrial fibrillation. Cardiology was consulted. Esperanza lopez's chart, labs, images were reviewed and discussed with RN Patient clinically stable by day of discharge. Please see cardiology recommendations above. Will need to go to nursing facility for further rehab after steroid injection by Dr. MIREYA AMIN. Rest of hospital course was uneventful Disposition: Disposition/Orders: D/C to Another Facility Activity: Activity: Resume previous activity Diet: Diet: Cardiac Medications: Home Meds Active Scripts Alprazolam (ALPRAZOLAM) 0.5 Mg Tablet, 1 TAB PO TID PRN for ANXIETY, #50 TAB Prov:KAMLA WILKS MD 12/10/21 Losartan Potassium (COZAAR ) 50 Mg Tablet, 100 MG PO QHS for blood pressure for 30 Days, #60 TAB Prov:ALISHA BROOKE MD 12/09/21 Amlodipine Besylate (AMLODIPINE BESYLATE) 10 Mg Tablet, 10 MG PO QHS for blood pressure for 30 Days, #30 TAB Prov:ALISHA BROOKE MD 12/09/21 Sertraline Hcl (SERTRALINE HCL) 50 Mg Tablet, 50 MG PO DAILY for ANTI-DEPRESSANT for 30 Days, #30 TAB 2 Refills Prov:ALISHA BROOKE MD 12/09/21 Meclizine Hcl (MECLIZINE HCL) 12.5 Mg Tablet, 12.5 MG PO PRN Q6HRS PRN for DIZZINESS for 3 Days, #12 TAB Prov:ALISHA BROOKE MD 12/09/21 Aspirin (ASPIRIN EC) 81 Mg Tablet.dr, 81 MG PO DAILYWBKFT for secondary heart prevention for 30 Days, #30 TAB.SR Prov:ALISHA BROOKE MD 12/09/21 Carvedilol (CARVEDILOL ) 6.25 Mg Tablet, 6.25 MG PO BIDWMEALS for heart rate for 30 Days, #60 TAB 2 Refills Prov:ALISHA BROOKE MD 12/09/21 Tramadol Hcl (TRAMADOL HCL) 50 Mg Tablet, 50 MG PO PRN Q6HRS PRN for PAIN MODERATE/SEVERE, #30 TAB Prov:CAROLINA REECE MD 07/07/21 Atorvastatin Calcium (ATORVASTATIN CALCIUM) 20 Mg Tablet, 20 MG PO QHS for 30 Days, #30 TAB 5 Refills Prov:Isa MARTÍNEZ MD 10/16/17 Reported Medications Carbamazepine (CARBAMAZEPINE) 200 Mg Tablet, 400 MG PO HS 03/03/15 Temazepam (TEMAZEPAM) 30 Mg Capsule, 30 MG PO HS 01/16/14 Carbamazepine (CARBAMAZEPINE) 200 Mg Tablet, 600 MG PO DAILY08 01/16/14 Phenytoin Sodium Extended (PHENYTOIN SODIUM EXTENDED) 100 Mg Capsule, 400 MG PO HS 01/16/14 Discontinued Reported Medications Alprazolam (ALPRAZOLAM) 1 Mg Tablet, 1 MG PO TID 01/16/14 Scheduled Amlodipine Besylate (Amlodipine Besylate), 10 MG PO QHS Aspirin (Aspirin Ec), 81 MG PO DAILYWBKFT Atorvastatin Calcium (Atorvastatin Calcium), 20 MG PO QHS Carbamazepine (Carbamazepine), 600 MG PO DAILY08, (Reported) Carbamazepine (Carbamazepine), 400 MG PO HS, (Reported) Carvedilol (Carvedilol ), 6.25 MG PO BIDWMEALS Losartan Potassium (Cozaar ), 100 MG PO QHS Phenytoin Sodium Extended (Phenytoin Sodium Extended), 400 MG PO HS, (Reported) Sertraline Hcl (Sertraline Hcl), 50 MG PO DAILY Temazepam (Temazepam), 30 MG PO HS, (Reported) Scheduled PRN Alprazolam (Alprazolam), 1 TAB PO TID PRN for ANXIETY Meclizine Hcl (Meclizine Hcl), 12.5 MG PO PRN Q6HRS PRN for DIZZINESS Tramadol Hcl (Tramadol Hcl), 50 MG PO PRN Q6HRS PRN for PAIN MODERATE/SEVERE Discontinued Medications Alprazolam (Alprazolam), 1 MG PO TID, (Reported) Total Time: Total Time: Total time spent was 32 minutes in preparing scripts, discharge planning with [facility]I and RN and preparing this discharge summary Patient seen and examined on day of discharge. No acute abnormal findings. Justicifation of Admission Dx: Justifications for Admission: Justification of Admission Dx: Yes Fracture: Fracture ALISHA BROOKE MD Dec 12, 2021 13:14
== END 2021-12-09 13:45 | DRG 305 ==
LOC: ER 13:04 → 5 SOUTH 16:24
PROVIDERS: ADMIT Internal Medicine; ATTEND Internal Medicine
DX: I16.0 Hypertensive urgency (principal); E03.9 Hypothyroidism, unspecified; E78.5 Hyperlipidemia, unspecified; G40.909 Epilepsy, unspecified, not intractable, without status epilepticus; G62.9 Polyneuropathy, unspecified; I10 Essential (primary) hypertension; I48.91 Unspecified atrial fibrillation; J45.909 Unspecified asthma, uncomplicated; M17.11 Unilateral primary osteoarthritis, right knee; M41.9 Scoliosis, unspecified; M48.02 Spinal stenosis, cervical region; M50.30 Other cervical disc degeneration, unspecified cervical region; R29.6 Repeated falls; W18.30XA Fall on same level, unspecified, initial encounter; Z82.49 Family history of ischemic heart disease and other diseases of the circulatory system; Z87.19 Personal history of other diseases of the digestive system; Z87.891 Personal history of nicotine dependence; Z90.710 Acquired absence of both cervix and uterus; Z96.652 Presence of left artificial knee joint; R55 Syncope and collapse
CPT/HCPCS: 36415; 70450; 71101; 72125; 73562; 73565; 80053; 80061; 84484; 85025; 93005; 93306; 96360; J0360; J1040; J1170; J1650; J3010; J3490; J7030; U0003; U0005; 97530-GP; 99285-25; C8929; G0378